=== PATIENT | female | born 1960 | race Caucasian/White ===

== ENCOUNTER → 2017-05-10 08:49 | Outpatient (CLI) | payer OTHER ==
--- NOTE | ~2017-05-10 | EC ---
PATIENT:BORIS WEI DATE OF SERVICE: 05/10/17 SEX: F MEDICAL RECORD: [id number] DATE OF : 56 LOCATION:[facility] AGE OF PATIENT: 57 ADMISSION DATE: 05/10/17 REFERRING PHYSICIAN: INTERPRETING PHYSICIAN: KIERA VALLECILLO MD ECHOCARDIOGRAM REPORT ECHO CHARGES 4 ECHO COMPLETE CLINICAL DIAGNOSIS: PALPITATIONS,CHEST PAIN,HTN ECHOCARDIOGRAPHIC MEASUREMENTS (adult normal given) AC root (d.<3.7cm) 3.0 cm LV Septum d (<1.2 cm> 1.4 cm Valve Excursion 1.2 cm LV Septum (systole) 1.5 cm Left Atria (s.<4.0cm> 3.2 cm LVPW d(<1.2cm) 1.4 cm RV (d.<2.3cm) 2.9 cm LVPW (sytole) 1.6 cm LV diastole(<5.6CM) 4.4 cm MV E-F(>70mm/sec) cm LV systole 2.4 cm LVOT Diameter 1.6 cm MV exc.(>10mm) 1.6 cm Est.ejection fraction (50-75%) % Pericardial Effusion N DOPPLER: LVIT cm/sec A 80.0 cm/sec E 59.0 cm/sec LA cm/sec RVSP 18 mmHg LVOT 116 cm/sec AOP1/2T m/s Asc. Ao 153 cm/sec RVOT 102 cm/sec RA cm/sec PA 111 cm/sec AV Gradient Peak 9.31 mmHg AV Mean 4.66 mmHg AV Area 1.6 cm MV Gradient Peak 3.42 mmHg MV Mean 1.39 mmHg MV Area cm COMMENTS: Concrete Engineering Technician: Lupe POP Ship Runner: 4 Dr. Vallecillo TAPE# PACS DATE OF SERVICE: 05/10/2017 PROCEDURE: Transthoracic echocardiogram. FINDINGS: 1. The left ventricle shows mild concentric left ventricular hypertrophy. Inflow characteristics are consistent with diastolic dysfunction. There is no regional wall motion abnormality. The ejection fraction is 60% to 65%. 2. The left atrium is normal size, normal function. 3. The aortic valve is structurally normal and normal function. ECHOCARDIOGRAM REPORT [id number] BORIS WEI 4. The mitral valve is structurally normal with normal function. 5. Tricuspid valve has no significant tricuspid regurgitation. RVSP is normal. 6. The pericardium shows no pericardial effusion. 7. The right atrium is normal size, normal function. 8. The right ventricle is normal size, normal function. CONCLUSIONS: The patient has evidence of mild hypertensive heart disease, otherwise a normal echocardiogram. TRANSINT:[id number] Voice Confirmation ID: [id number] DOCUMENT ID: [id number] KIERA VALLECILLO MD CC: [id number] DICTATION DATE: 05/12/17 0807 CONTACT ACID PLANT OPERATOR HELPER: 05/12/17 1053 DEP CLI 05/10/[address] [address]
== END | disposition home or self-care (01) ==
LOC: D.ECHO 08:49
DX: I10 Essential (primary) hypertension (principal); E78.5 Hyperlipidemia, unspecified; R07.9 Chest pain, unspecified; R00.2 Palpitations

== ENCOUNTER → 2017-05-10 16:39 | Outpatient (CLI) | payer OTHER ==
[2017-05-10 18:01] LABS: ALBUMIN 4.1 g/dL (3.4-5.0); BILIRUBIN - DIRECT 0.1 mg/dL (0.00-0.30); BILIRUBIN - INDIRECT 0.37 mg/dL (0.00-1.00); BILIRUBIN - TOTAL 0.47 mg/dL (0.2-1.3); CHOL - HDL RATIO 3.5 ratio (2.3-4.1); LDL-HDL RATIO 2.1 ratio (1.5-3.5); PROTEIN - SERUM 6.8 g/dL (6.4-8.2)
== END | disposition home or self-care (01) ==
LOC: D.LABREF 16:39
PROVIDERS: Internal Medicine Cardiovascular Disease
DX: E78.5 Hyperlipidemia, unspecified (principal)

== ENCOUNTER 2017-06-08 06:59 | Outpatient (CLI) | payer OTHER ==
[~2017-06-08] VITALS: Ht 152.4 cm; Wt 78.2 kg
--- NOTE | ~2017-06-08 | HEMODYNAMI ---
PATIENT:BORIS WEI MEDICAL RECORD: [id number] : 56 LOCATION:[facility] ADMISSION DATE: 06/08/17 Generatedon:06/08/20179:41 Patient name: BORIS WEI Patient #: [id number] SSN: : 1960 Date of study: 06/08/2017 Page: Of Hemodynamic Procedure Report Patient Data Patient Demographics Procedure consent was obtained First Name: BORIS Gender: Female Last Name: ERIBERTO : 1960 Middle Initial: MIREILLE Age: 57 year(s) Patient #: [id number] Race: Unknown Additional ID: [id number] Contact details [address]: [address] [place] [address] State: [place] City: [place] Zip code: [address] Past Medical History Allergies Allergen Reaction Date Comments Reported Other allergy 06/08/2017 [facility] Admission Admission Data Admission Date: 06/08/2017 Admission Time: 6:59 Procedure Procedure Types Cath Procedure Diagnostic Procedure LHC LHC w/Coronaries Procedure Description Procedure Date Procedure Date: 06/08/2017 Procedure Start Time: 9:28 Procedure End Time: 9:39 Procedure Staff Name Function Daniel Still MD Performing Physician Arthur Landers RN Tinsmith Apprentice Keiko Vega RT Monitor Arthur Landers RN Nurse Rolanda Kamara RT Scrub Procedure Data Cath Procedure Fluoroscopy Diagnostic fluoroscopy Total fluoroscopy Time: 0.9 time: 0.9 min min Diagnostic fluoroscopy Total fluoroscopy dose: 135 dose: 135 mGy mGy Contrast Material Contrast Material Type Amount (ml) Isovue 300 0 Entry Location Entry Primary Successful Side Size Upsize Upsize Entry Closure Succes sful Closure Location (Fr) 1 (Fr) 2 (Fr) Remarks Device Remarks Femoral Right 5 Fr Exoseal artery Estimated blood loss: 5 ml Diagnostic catheters Device Type Used For End Catheter Placement MULTIPACK JL 4.0 5Fr Left Coronary catheter Angiography MULTIPACK 3DRC 5Fr Right Coronary catheter Angiography MULTIPACK Pigtail 5 Fr LV Angiography catheter Procedure Complications No complications Procedure Medications Medication Administration Route Dosage Oxygen NC 2 l/min Lidocaine 2% added to field 20 Heparin Flush Bag added to field 2 bags (1000units/500ml NS) 0.9% NaCl I.V. 100 ml/hr Versed I.V. 2 mg Fentanyl I.V. 50 mcg Versed I.V. 1 mg Hemodynamics Rest Heart Rate: 90 (bpm) Pressure Samples Time Site Value (mmHg) Purpose Heart Use Rate(bpm) 9:36 LV 102/8,15 EDP 77 9:36 AO 119/93(88) Pullback 80 9:36 LV 114/15,17 Pullback 80 Gradients Valve Time Site 1 Site 2 Mean SEP/DFP Peak To Heart Use (mmHg) (sec/min) Peak Rate (mmHg) (bpm) Aortic 9:36 LV AO 0 19 0 80 114/15,17 119/93(88) Calculations Valve P-P Mean Valve Index Valve Source Name Gradient Area Flow (cm2) Aortic 0 0 0 0 Snapshots Pre Cath Intra NCS Post Cath Vital Signs Time Heart Resp SPO2 etCO2 NIBP (mmHg) Rhythm Pain Sedation Rate (ipm) (%) (mmHg) Status Level (bpm) 9:10:43 90 30 98 0 167/78(142) NSR 0 (11) 10(A) , No pain 9:14:59 84 12 96 33.8 132/86(113) NSR 0 (11) 10(A) , No pain 9:19:15 81 21 96 35.3 138/77(112) NSR 0 (11) 10(A) , No pain 9:23:29 81 19 97 36.1 123/71(91) NSR 0 (11) 10(A) , No pain 9:27:39 86 24 95 33.8 116/79(98) NSR 0 (11) 10(A) , No pain 9:31:51 78 14 94 26.3 114/73(97) NSR 0 (11) 9(A) , No pain 9:36:01 77 15 95 32.3 108/67(81) NSR 0 (11) 10(A) , No pain 9:40:33 77 14 96 32.3 120/68(81) NSR 0 (11) 10(A) , No pain Medications Time Medication Route Dose Verified Delivered Reason Notes Effec tiveness by by 9:13:39 Oxygen NC 2 Daniel Buffie used for l/min Cheko Landers RN procedure MD 9:13:46 Lidocaine 2% added 20ml Daniel Daniel for local to vial Cheko Still MD anesthetic field 9:13:53 Heparin Flush added 2 Daniel Daniel used for Bag to bags Cheko Still MD procedure (1000units/500ml field BRWEER NS) 9:14:02 0.9% NaCl I.V. 100 Daniel Buffie Per ml/hr Cheko Landers RN physician MD 9:28:39 Versed I.V. 2 mg Daniel Buffie for Cheko Landers RN sedation 9:28:45 Fentanyl I.V. 50 Daniel Buffie for mcg Cheko Landers RN sedation 9:33:24 Versed I.V. 1 mg Daniel Buffie for Cheko Landers RN sedation Procedure Log Time Note 8:57:59 Diagnostic Cath Status : Elective 8:58:28 Arthur Landers RN sent for patient. Start room use. 8:58:30 Time tracking: Regular hours 8:58:34 Plan of Care:Hemodynamics will remain stable., Cardiac rhythm will remain stable., Comfort level will be maintained., Respiratory function will remain adequate., Patient/ family verbilizes understanding of procedure., Procedure tolerated without complication., Recovers from procedure without complications.. 8:58:40 Patient received from Pre/Post Procedure Room to [facility] 2 Alert and oriented. Tansferred to table in Supine position. 9:09:27 Warm blankets applied, and rossy hugger turned on for patient comfort. 9:09:28 Correct patient and procedure confirmed by team. 9:09:30 Signed procedure consent form obtained from patient. 9:09:31 ECG and BP/O2 sat monitors applied to patient. 9:09:31 Vital chart was started 9:09:32 Baseline sample Acquired. 9:09:37 Full Disclosure recording started 9:09:45 H&P Date Dictated: 06/07/2017 Within 30 days and on chart., H&P Addendum completed by physician on day of procedure. (MUST COMPLETE FOR ALL OUTPATIENTS). 9:09:47 Pre-procedure instructions explained to patient. 9:09:47 Pre-op teaching completed and patient verbalized understanding. 9:09:49 Family in waiting room. 9:09:50 Patient NPO since Midnight. 9:10:04 Patient allergic to Other allergypercocet 9:10:06 Is the patient allergic to Iodine/contrast media? No. 9:10:07 Was the patient premedicated? No 9:10:11 Is patient on blood thinner?Yes 9:10:13 ACC The patient was administered the following blood thiners within the last 24 hours: ACCPlavix 9:10:15 Patient diabetic? No. 9:10:18 Previous problem with sedation/anesthesia? No ? 9:10:20 Snore? Yes 9:10:21 Sleep apnea? No 9:10:22 Deviated septum? No 9:10:23 Opens mouth fully? Yes 9:10:23 Sticks out tongue? Yes 9:10:25 Airway obstruction? No ? 9:10:27 Dentures? No ? 9:10:31 Pre procedure: right dorsailis pedis pulse 2+ Normal; easily identifiable; not easily obliterated 9:10:32 Pre procedure: left dorsailis pedis pulse 2+ Normal; easily identifiable; not easily obliterated 9:10:34 Patient pain scale 0/10 ?. 9:10:40 IV patent on arrival in left hand with 0.9% NaCl at KVO. 9:10:43 Lab results completed and on chart. 9:10:47 Right groin area was prepped with chlora-prep and draped in sterile fashion 9:10:48 Alarms reviewed by R. N. 9:10:48 Sharps counted by scrub and verified by R.N. 9:13:39 Oxygen 2 l/min NC was administered by Arthur Landers RN; used for procedure; 9:13:46 Lidocaine 2% 20ml vial added to field was administered by Daniel Still MD; for local anesthetic; 9:13:53 Heparin Flush Bag (1000units/500ml NS) 2 bags added to field was administered by Daniel Still MD; used for procedure; 9:14:02 0.9% NaCl 100 ml/hr I.V. was administered by Arthur Landers RN; Per physician; 9:17:05 Use device set Femoral Dx 9:17:07 ACIST Syringe (09985) opened to sterile field. 9:17:07 Bag Decanter (2002) opened to sterile field. 9:17:08 Medline Cath Pack ([id number]) opened to sterile field. 9:17:09 SHEATH 5FR [place] (MHR986) opened to sterile field. 9:17:10 DIAGNOSTIC WIRE .035 260cm J wire (007526) opened to sterile field. 9:17:16 ACIST Hand Control (59501) opened to sterile field. 9:17:17 ACIST Manifold (63790) opened to sterile field. 9:17:19 DIAGNOSTIC Multipack 5Fr catheter set (EE7090) opened to sterile field. 9:17:48 Tegaderm 4 x 4 (1626W) opened to sterile field. 9:17:49 MICROPUNCTURE 4FR Cook (W14640) opened to sterile field. 9:19:10 Zero performed for pressure channel P1 9:27:45 Physician arrived 9::46 --------ALL STOP TIME OUT------ 9::46 Final Timeout: patient, procedure, and site verified with staff and physician. All members of the team are in agreement. 9:27:48 Right groin site verified by team. 9:27:51 Physical assessment completed. ASA score P 2 - A patient with mild systemic disease as per Daniel Still MD. 9:27:54 Sedation plan: IV Moderate Sedation Medication:Versed, Fentanyl 9:27:57 Procedure started. 9:28:00 Local anesthetic to right femoral artery with Lidocaine 2% by Daniel Still MD.INITIAL ACCESS ONLY 9:28:02 Access obtained with 4Fr micropunture. 9:28:39 Versed 2 mg I.V. was administered by Arthur Landers RN; for sedation; 9::45 Fentanyl 50 mcg I.V. was administered by Arthur Landers RN; for sedation; 9:29:59 A 5 Fr sheath was inserted into the Right Femoral artery 9:30:13 A MULTIPACK JL 4.0 5Fr catheter was advanced over the wire and used for Left Coronary Angiography. 9:31:28 LCA angiography performed. 9:31:31 Injector settings: Ml/sec: 3, Volume: 6, 9:32:25 Catheter removed. 9:32:32 A MULTIPACK 3DRC 5Fr catheter was advanced over the wire and used for Right Coronary Angiography. 9:33:24 Versed 1 mg I.V. was administered by Arthur Landers RN; for sedation; 9:33:34 RCA angiography performed. 9:33:37 Injector settings: Ml/sec: 3, Volume: 6, 9:34:01 Catheter removed. 9:34:07 A MULTIPACK Pigtail 5 Fr catheter was advanced over the wire and used for LV Angiography. 9:36:25 LV hemodynamics recorded. 9:36:26 LV gram done using JIMENEZ 9:36:31 Injector settings: Ml/sec: 5, Volume: 15, 9:36:45 EF : 65 % 9:36:52 Catheter removed. 9:36:56 EXOSEAL 5Fr (EX500) opened to sterile field. 9:37:09 Sheath removed intact; hemostasis achieved with Exoseal to the Right Femoral artery. 9:37:11 Procedure ended.(Physican Out) 9:37:29 Fluoroscopy time 00.90 minutes. 9:37:33 Fluoroscopy dose: 135 mGy 9:37:33 Flurop Dose total: 135 9:38:24 Contrast amount:Isovue 300 0ml. 9:38:27 Insertion/operative site no bleeding no hematoma. 9:38:30 Post-op/insertion site Right Femoral artery dressed using a 4 x 4 and Tegaderm. 9:38:32 Post right femoral artery:stable 9:38:34 Post Procedure Pulses reassessed and unchanged 9:38:36 Post procedure rhythm: unchanged. 9:38:38 Estimated blood loss: 5 ml 9:38:40 Post procedure instruction explained to patient.Patient verbalizes understanding. 9:38:40 Patient needs reinforcement of post procedure teaching. 9:38:56 Procedure type changed to Cath procedure, Diagnostic procedure, LHC, LHC w/Coronaries 9:38:57 Procedure and supply charges have been captured, reviewed, submitted and are correct. 9:39:02 Procedure Complication : No complications 9:39:04 Vital chart was stopped 9:39:04 See physician's report for complete and final results. 9:39:07 Report given to Pre/Post Procedure Room. 9:39:10 Patient transfered to Pre/Post Procedure Room with Stretcher. 9:39:12 Procedure ended. 9:39:12 Full Disclosure recording stopped 9:39:17 End room use (Document Last) Device Usage Item Name Manufacture Quantity Catalog Hospital Part Current Minimal Lot# / Number Charge Number Stock Stock Serial# Code ACIST Syringe Acist 1 08167 504341 176581 [id number] 20 (35431) Medical Systems Inc Bag Decanter Microtek 1 2001S 018262 70436 167095 5 (2001S) Medical Inc. Medline Cath Cardinal 1 [id number] 892304 51884 832869 5 Pack Health ([id number]) SHEATH 5FR Terumo 1 [id number] 882406 877221 044474 40 [place] (DOG115) DIAGNOSTIC St Jim 1 081415 496374 672821 553971 30 WIRE .035 260cm J wire (150208) ACIST Hand Acist 1 93857 617384 556080 653287 5 Control Medical (59011) Systems Inc ACIST Acist 1 32535 805936 091578 535466 5 Manifold Medical (54491) Systems Inc DIAGNOSTIC Cardinal 1 LD0485 901789 47526 739337 30 Multipack 5Fr Health catheter set (UL3213) Tegaderm 4 x 3M 1 1626W 738060 886813 675083 5 4 (1626W) MICROPUNCTURE Riskified Medical 1 D30852 142939 335124 631116 5 4FR Cook (I53215) MULTIPACK JL Cardinal 1 346718 5 4.0 5Fr Health catheter MULTIPACK Cardinal 1 516336 5 3DRC 5Fr Health catheter MULTIPACK Cardinal 1 089789 5 Pigtail 5 Fr Health catheter EXOSEAL 5Fr Cardinal 1 EX500 625198 829765 691344 10 (EX500) Health Signature Audit [place] Stage Time Signature Unsigned Intra-Procedure 06/08/2017 Keiko Vega 9:41:10 AM RT(R) Signatures Monitor : Keiko Vega RT Signature : Date : Time : [facility] [address] [place] [address]
[2017-06-08] MEDS ORDERED: BAYER CHEWABLE81 MG PO (07:11)
[2017-06-08] MEDS ORDERED: ZOCOR20 MG PO (07:11)
[2017-06-08] MEDS ORDERED: PRINIVIL20 MG PO (07:11)
[2017-06-08 07:20] VITALS: Ht 152.4 cm; Wt 78.2 kg
[2017-06-08 07:45] LABS: BASOPHILS 0.3 % (0-2); EOSINOPHILS 3.8 % (0-7); HEMATOCRIT 44.9 % (36.0-48.0); HEMOGLOBIN 15.4 g/dL (12-16); IMMATURE GRANULOCYTES 0.3 % (0-5); LYMPHOCYTES 33.5 % (15-50); MCH 28.8 pg (26.0-34.0); MCHC 34.3 g/dL (31.0-37.0); MCV 84.1 fL (80.0-100.0); MEAN PLATELET VOLUME 10.3 fL (7.4-10.4); NEUTROPHILS 53.1 % (40-80); PLATELET COUNT 142 10x3/uL (130-400); RBC 5.34 10x6/uL (4.00-5.40); RDW 12.8 % (11.5-14.5)
[2017-06-08 07:59] LABS: CALC OSMOLALITY 263 mosm/kg (275-300); CALCIUM 9.6 mg/dL (8.5-10.1); CARBON DIOXIDE 17.6 mmol/L (21.0-32.0); CHLORIDE - SERUM 105 mmol/L (98-107); CREATININE - SERUM 0.8 mg/dL (0.6-1.3); GLUCOSE 88 mg/dL (74-106); POTASSIUM - SERUM 4.9 mmol/L (3.5-5.1); SODIUM 133 mmol/L (136-145); UREA NITROGEN 10 mg/dL (7-18); eGFR NON AFRICAN AMERICAN 78 mL/min (90-120)
== END 2017-06-08 12:05 | disposition home or self-care (01) ==
LOC: D.CATH 06:59
PROVIDERS: Internal Medicine Cardiovascular Disease
DX: R00.2 Palpitations (principal); I10 Essential (primary) hypertension; E78.5 Hyperlipidemia, unspecified; R07.9 Chest pain, unspecified; Z01.812 Encounter for preprocedural laboratory examination

== ENCOUNTER → 2017-08-08 17:26 | Outpatient (CLI) | payer OTHER ==
[2017-06-08 07:20] VITALS: BMI 33.6
[~2017-08-08 17:26] MED LIST: BAYER CHEWABLE81 MG PO; PRINIVIL20 MG PO; ZOCOR20 MG PO
[2017-08-08 20:30] LABS: CHOL - HDL RATIO 3.9 ratio (2.3-4.1); LDL-HDL RATIO 2.6 ratio (1.5-3.5)
== END | disposition home or self-care (01) ==
LOC: D.LABREF 17:26
PROVIDERS: Internal Medicine Cardiovascular Disease
DX: E78.5 Hyperlipidemia, unspecified (principal)

== ENCOUNTER → 2017-10-06 17:23 | Outpatient (CLI) | payer OTHER ==
[2017-06-08 07:20] VITALS: BMI 33.6
[2017-10-06 18:41] LABS: CHOL - HDL RATIO 3.6 ratio (2.3-4.1); LDL-HDL RATIO 2.3 ratio (1.5-3.5)
== END | disposition home or self-care (01) ==
LOC: D.LABREF 17:23
PROVIDERS: Internal Medicine Cardiovascular Disease
DX: E78.5 Hyperlipidemia, unspecified (principal)

== ENCOUNTER → 2018-02-14 17:57 | Outpatient (CLI) | payer OTHER ==
[2017-06-08 07:20] VITALS: BMI 33.6
[2018-02-14 18:50] LABS: ALBUMIN 3.9 g/dL (3.4-5.0); BILIRUBIN - DIRECT 0.1 mg/dL (0.00-0.30); BILIRUBIN - INDIRECT 0.34 mg/dL (0.00-1.00); BILIRUBIN - TOTAL 0.44 mg/dL (0.2-1.3); CHOL - HDL RATIO 3.5 ratio (2.3-4.1); LDL-HDL RATIO 2.1 ratio (1.5-3.5); PROTEIN - SERUM 6.9 g/dL (6.4-8.2)
== END | disposition home or self-care (01) ==
LOC: D.LABREF 17:57
PROVIDERS: Internal Medicine Cardiovascular Disease
DX: E78.5 Hyperlipidemia, unspecified (principal)